=== PATIENT | female | born 1975 | race African-American/Black ===

== ENCOUNTER 2018-03-27 11:34 | Outpatient (CLI) ==
[2014-06-25 19:09] VITALS: BMI 30.2
--- NOTE | 2018-03-27 15:41 | DI ---
EXAM: Four views of the right knee. History: Right knee pain. Findings: No acute fracture or dislocation. No abnormal calcifications or radiopaque foreign bodies . Mild to moderate narrowing of the medial compartment. Mild narrowing of the lateral compartment. Patellofemoral compartment is intact. There are small osteophytes. Impression: 1. No acute osseous abnormality. 2. Mild to moderate osteoarthritis
--- NOTE | 2018-03-27 15:42 | DI ---
EXAM: Scoliosis series two views HISTORY: Dorsalgia FINDINGS: There is mild sinusoidal curvature of the thoracolumbar spine convex to the left centered at the lower thoracic level with a curvature of up to 7 degrees and convex to the right at the mid catracho mbar level about the same degree. There is no vertebral body anomaly or loss of vertebral body heigh t. Bone density appears normal. No degenerative changes of the spine or paraspinal mass. IMPRESSION: 1. Mild sinusoidal scoliosis of the thoracolumbar spine.
== END 2018-03-27 11:35 | disposition home or self-care (01) ==
LOC: LAB 11:34
PROVIDERS: ATTEND Nurse Practitioner Family
DX: Z00.00 Encounter for general adult medical examination without abnormal findings (principal); M25.561 Pain in right knee; G89.29 Other chronic pain; M54.9 Dorsalgia, unspecified; R07.89 Other chest pain
CPT/HCPCS: 36415; 80053; 80061; 84443; 85025

== ENCOUNTER 2018-04-03 13:40 | Outpatient (CLI) ==
[2014-06-25 19:09] VITALS: BMI 30.2
--- NOTE | 2018-04-05 11:50 | MAMMO ---
EXAM: Bilateral digital screening mammogram (2-D and 3-D) History: Baseline screening Findings: MLO and CC views of bilateral breasts demonstrate scattered fibroglandular breast parenchy ma. CAD was reviewed by the radiologist. Tomosynthesis was performed. There are no dominant masses , no suspicious microcalcifications and no architectural distortions Impression: Negative mammogram. Recommend followup routine screening mammography in 1 year. BIRADS 1, negative
== END 2018-04-03 13:41 | disposition home or self-care (01) ==
LOC: RAD 13:40
PROVIDERS: ATTEND Nurse Practitioner Family
DX: Z12.31 Encounter for screening mammogram for malignant neoplasm of breast (principal)